=== PATIENT | male | born 1995 | race Caucasian/White ===

== ENCOUNTER → 2016-05-07 | Outpatient (CLI) | payer OTHER ==
--- NOTE | 2016-05-07 21:34 | DIAGNOSTIC IMAGING REPORT ---
MRI LEFT KNEE NO CONTRAST CLINICAL HISTORY: Left knee pain status post trauma COMPARISON STUDY: No previous studies for comparison. FINDINGS: Imaging was performed in the axial, sagittal, and coronal planes. There is a bone bruise and minimal impaction deformity involving the lateral femoral condyle. The quadriceps patellar tendons appear intact. The anterior and posterior cruciate ligaments appear intact. The lateral meniscus appears intact. There is a horizontal tear involving the posterior horn the medial meniscus. The patellar retinacular structures appear intact. The lateral collateral ligament appears normal. There is a medial collateral ligament strain. IMPRESSION: 1. Minimal impaction with secondary bone bruise involving the lateral femoral condyle 2. Tear involving the posterior horn the medial meniscus 3. Medial collateral ligament strain 4. No evidence of cruciate ligament tear Electronically signed by: Brian Moore M.D. 05/07/2016 9:33 PM Dictated Date/Time: 05/07/2016 9:27 PM
== END | disposition home or self-care (01) ==
LOC: C.MRI 19:54
PROVIDERS: ATTEND Physical Medicine & Rehabilitation Sports Medicine
DX: S80.02XA Contusion of left knee, initial encounter (principal); X58.XXXA Exposure to other specified factors, initial encounter; T14.8 Other injury of unspecified body region; S83.242A Other tear of medial meniscus, current injury, left knee, initial encounter; S83.412A Sprain of medial collateral ligament of left knee, initial encounter

== ENCOUNTER → 2016-05-14 | Outpatient (CLI) | payer OTHER | END | disposition home or self-care (01) | LOC: C.RDSM 08:20 | PROVIDERS: ATTEND Physical Medicine & Rehabilitation Sports Medicine | DX: S80.02XA Contusion of left knee, initial encounter (principal); X58.XXXA Exposure to other specified factors, initial encounter ==